=== PATIENT | male | born 1955 | race Caucasian/White ===

== ENCOUNTER 2021-10-13 15:11 | Emergency (ER) | payer MEDICARE, OTHER ==
[~2021-10-13] VITALS: Ht 182.9 cm; Wt 104.3 kg
--- NOTE | 2021-10-13 15:27 | EKG ---
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: : 1955 Requested By: Lauro Andersen Order Number: [id number] MD: Sherman Johnson Measurements Intervals [place] Rate: 111 P: 61 WI: 140 QRS: 51 QRSD: 95 T: 35 QT: 326 QTc: 443 Interpretive Statements Sinus tachycardia Baseline wander in lead(s) V3 No previous ECG available for comparison Electronically Signed On 10-13-2021 15:27:16 LEGAL ACTIVITY ADJUDICATOR by Sherman Johnson [email or web address] <ELECTRONICALLY SIGNED> By: Sherman Johnson MD, [facility] 10/13/21 1527 12 151 Sherman Johnson MD, FACC /EPI
[2021-10-13 15:43] LABS: ABSOLUTE EOSINOPHILS 0.2 thou/uL (0.0-0.7); ABSOLUTE LYMPHOCYTES 1.3 thou/uL (0.8-5.3); ABSOLUTE MONOCYTES 0.5 thou/uL (0.0-1.2); ABSOLUTE NEUTROPHILS 4.6 thou/uL (1.6-8.1); BASOPHILS 0.4 %; EOSINOPHILS 2.7 %; HEMATOCRIT 39.9 % (42.0-52.0); HEMOGLOBIN 13.9 gm/dL (14.0-18.0); LYMPHOCYTES 19.2 %; MCH 32.7 pg (26.0-34.0); MCV 93.5 fL (80.0-100.0); MONOCYTES 7.7 %; NUCLEATED RBCS 0 /100WBC; PLATELET COUNT* 203 thou/uL (150-400); RBC 4.27 mil/uL (4.50-6.00); WBC 6.6 thou/uL (4.0-11.0)
[2021-10-13 15:59] LABS: CALCIUM 8.9 mg/dL (8.5-10.1); CREATININE 1.9 mg/dL (0.6-1.3); POTASSIUM 3.8 mmol/L (3.5-5.1)
[2021-10-13 16:11] LABS: CK-MB MASS 2.2 ng/mL (<0.5-3.6); MAGNESIUM 1.9 mg/dL (1.8-2.4); TOTAL BILIRUBIN 0.9 mg/dL (<0.1-1.0); TOTAL PROTEIN 7.2 g/dL (6.4-8.2)
[2021-10-13] MEDS ORDERED: NEURONTIN300 MG PO (16:39)
[2021-10-13] MEDS ORDERED: FLOMAX0.4 MG PO (16:40)
[2021-10-13] MEDS ORDERED: DUTASTERIDE0.5 MG PO (16:40)
[2021-10-13] MEDS ORDERED: DICYCLOMINE HCL20 MG PO (16:40)
[2021-10-13] MEDS ORDERED: FENOFIBRATE160 MG PO (16:41)
[2021-10-13] MEDS ORDERED: VITAMIN D250 MC1 PO (16:41)
[2021-10-13] MEDS ORDERED: LOSARTAN/HCTZ PO (16:44)
[2021-10-13 18:01] VITALS: BP 111/69
== END 2021-10-13 18:02 | disposition home or self-care (01) ==
LOC: M.ERS 15:11
PROVIDERS: Family Medicine
DX: R07.89 Other chest pain (principal); R42 Dizziness and giddiness; F12.90 Cannabis use, unspecified, uncomplicated; I10 Essential (primary) hypertension; Z79.899 Other long term (current) drug therapy